=== PATIENT | female | born 1995 | race Caucasian/White ===

== ENCOUNTER 2017-03-26 11:41 | Emergency (ER) | payer OTHER ==
[~2017-03-26] VITALS: Wt 47.5 kg
[~2017-03-26 11:41] MED LIST: ALBU8.5H5 INH; PRED20TA PO; RTPRO5
[2017-03-26] MEDS ORDERED: POLY10DR19 BOTH EYES (11:57)
--- NOTE | 2017-03-26 12:58 | ERD ---
ER Documentation Chief Complaint Date/Time DATE: 03/26/17 TIME: 12:54 Chief Complaint R EYE LID PAIN X 6 MONTHS HPI 21-year-old female patient with no significant past medical history presents to the ED complaining of a painful stye that has been on her right eyelid since September 2016. States that she has been applying hot compresses and applying a stye ointment that she bought [id number]. Denies any symptomatic relief. Denies any vision changes, blurred vision, diplopia, photophobia, phonophobia , eye trauma, headache, weakness, numbness or tingling. Denies wearing glasses or contacts. ROS All systems reviewed and are negative except as per history of present illness. Medications Home Meds Active Scripts Polymyxin B Sulfate-TMP* (Polymyxin B-TMP Eye Drops*) 10 Ml Drops, 1 DROP BOTH EYES QID for 7 Days, EA Prov:LUPE KRISHNA PA-C 03/26/17 Albuterol Sulfate* (Albuterol Sulfate* HFA) 8.5 Gm Hfa.aer.ad, 1-2 PUFF INH Q4 Y for SHORTNESS OF BREATH, #1 EA Prov:BAO WATERMAN PA-C 09/26/15 Prednisone* (Prednisone*) 20 Mg Tab, 40 MG PO DAILY for 4 Days, TAB Prov:BAO WATERMAN PA-C 09/26/15 Reported Medications Albuterol Sulfate* (Proventil* Neb) 0.5% Nebu 09/26/15 Allergies Allergies: Coded Allergies: No Known Allergy (Verified , 12/29/08) PMhx/Soc Medical and Surgical Hx: pt denies Medical Hx, pt denies Surgical Hx Hx Alcohol Use: No Hx Substance Use: No Hx Tobacco Use: No Smoking Status: Never smoker Physical Exam Vitals Vital Signs Date Time Temp Pulse Resp B/P Pulse Ox O2 Delivery O2 Flow Rate FiO2 03/26/17 11:43 98.0 83 18 115/74 99 Physical Exam Const: Njo-mqo-zxkecxezh, well-nourished. In no acute distress. Head: Atraumatic, normocephalic Eyes: Normal Conjunctiva without injection. 1 cm No purulent discharge. PERRLA. EOMI ENT: Normal external ear. Ear canal without erythema. Tympanic membrane pearly alonso without effusion or bulging. Nasal canal clear with normal turbinates. Moist oropharynx without tonsillar exudates. Non-erythematous pharynx. Uvula midline. No drooling. No trismus. Neck: No cervical midline tenderness. Full range of motion. No meningismus. No cervical lymphadenopathy. No JVD. Resp: Clear to auscultation bilaterally. No wheezing, rhonchi, rales, or crackles. No accessory muscle use. No retractions. Cardio: Regular rate and rhythm. No murmurs, rubs or gallops. Skin: Normal skin turgor. No petechiae or rashes Neur: Awake and alert. Normal gait. Normal coordination. Cranial Nerves II- VII intact. Normal finger to nose. Muscle strength 5/5. Sensation intact. Psych: Normal Mood and Affect Procedures/MDM This is a 21-year-old female patient with no significant past medical history presents to the ED complaining of right eyelid pain that started 6 months. Patient is afebrile and nontoxic-appearing. Patient has normal vital signs. Patient likely has a chronic stye since it is painful. Other differentials are to chalazion however these are usually painless. Patient's ocular symptoms have stabilized while they have been evaluated in the department and are appropriate for outpatient work up. Low suspicion for ruptured globe, retinal detachment, periorbital cellulitis, acute angle closure glaucoma, deep space infection, iritis, traumatic hyphema, conjunctivitis, subconjunctival hemorrhage , corneal abrasion, corneal ulcer, pterygium, hypopyon, blepharitis, or other emergent conditions. This case was discussed with my supervising physician Dr. Gomez who agreed with the management and discharge plan. Discharge medications: Polymyxin B TMP eyedrops Strictly instructed patient to follow up with an picker / packer within 2-3 days for further evaluation and treatment. Instructed patient to return to the ED for any worsening symptoms. Patient is hemodynamically stable. Patient's questions were answered. Patient understood and agreed with discharge plan. Departure Diagnosis: Primary Impression: Eyelid pain Laterality: right Qualified Code: H57.11 - Eyelid pain, right Condition: Stable Patient Instructions: Candace Garcia Referrals: COMM[facility]ITY [facility] YOU HAVE RECEIVED A MEDICAL SCREENING EXAM AND THE RESULTS INDICATE THAT YOU DO NOT HAVE A CONDITION THAT REQUIRES URGENT TREATMENT IN THE EMERGENCY DEPARTMENT. FURTHER EVALUATION AND TREATMENT OF YOUR CONDITION CAN WAIT UNTIL YOU ARE SEEN IN YOUR DOCTORS OFFICE WITHIN THE NEXT 1-2 DAYS. IT IS YOUR RESPONSIBILITY TO MAKE AN APPOINTMENT FOR FOLOW-UP CARE. IF YOU HAVE A PRIMARY DOCTOR --you should call your primary doctor and schedule an appointment IF YOU DO NOT HAVE A PRIMARY DOCTOR YOU CAN CALL OUR PHYSICIAN REFERRAL HOTLINE AT IF YOU CAN NOT AFFORD TO SEE A PHYSICIAN YOU CAN CHOSE FROM THE FOLLOWING [facility] [address] [facility] [address] [facility] [address] [facility] [address] [facility] [address] [facility]. [facility] [address] [facility]. [facility] YOU HAVE RECEIVED A MEDICAL SCREENING EXAM AND THE RESULTS INDICATE THAT YOU DO NOT HAVE A CONDITION THAT REQUIRES URGENT TREATMENT IN THE EMERGENCY DEPARTMENT. FURTHER EVALUATION AND TREATMENT OF YOUR CONDITION CAN WAIT UNTIL YOU ARE SEEN IN YOUR DOCTORS OFFICE WITHIN THE NEXT 1-2 DAYS. IT IS YOUR RESPONSIBILITY TO MAKE AN APPOINTMENT FOR FOLOW-UP CARE. IF YOU HAVE A PRIMARY DOCTOR --you should call your primary doctor and schedule and appointment IF YOU DO NOT HAVE A PRIMARY DOCTOR YOU CAN CALL OUR PHYSICIAN REFERRAL HOTLINE AT . IF YOU CAN NOT AFFORD TO SEE A PHYSICIAN YOU CAN CHOSE FROM THE FOLLOWING [facility] INSTITUTIONS: [facility] [address] [place] [address] [facility] [address] [place] [address] [facility] [address] [place] [address] [facility] Hours: Mon - Fri 9:00 AM - 5:00 PM Additional Instructions: Call your primary care doctor TOMORROW for an appointment during the next 1-2 days for a referral to opthalomologist. See the doctor sooner or return here if your condition worsens before your appointment time. LUPE KRISHNA PA-C Mar 26, 2017 12:58
== END 2017-03-26 12:17 | disposition home or self-care (01) ==
LOC: FTE 11:41
DX: H57.11 Ocular pain, right eye (principal)
CPT/HCPCS: 99283

== ENCOUNTER 2017-08-11 21:15 | Emergency (ER) | payer SELFPAY ==
[~2017-08-11] VITALS: Ht 152.4 cm; Wt 48.0 kg
[~2017-08-11 21:15] MED LIST changes: +POLY10DR19 BOTH EYES
[2017-08-11 21:40] VITALS: Ht 152.4 cm; Wt 48.0 kg
[2017-08-11] MEDS ORDERED: ALBUTEROL 0.083% (NEB) 2.5 MG/3 ML AMP NEB STA (23:29)
[2017-08-11] MEDS ORDERED: IPRATROPIUM (NEB) 0.5 MG/2.5 ML AMP NEB STA (23:29)
--- NOTE | 2017-08-11 23:50 | ERD ---
ER Documentation Chief Complaint Date/Time DATE: 08/11/17 TIME: 23:47 Chief Complaint c/o SB since a.m. No relief with inhaler. (+) wheeze. HPI 22-year-old female presents here in emergency department for complaints of shortness of breath wheezing that started this morning. Patient has been having dry cough, does not cough up any phlegm or blood. Patient does not have any fever or chills. Patient does not have any sick contacts. patient used albuterol at home with mild relief. ROS All systems reviewed and are negative except as per history of present illness. Medications Home Meds Active Scripts Prednisone* (Prednisone*) 50 Mg Tablet, 50 MG PO DAILY, #5 TAB Prov:JUAN العلي NP 08/12/17 Albuterol Sulfate* (Proair HFA*) 8.5 Gm Hfa.aer.ad, 2 PUFF INH Q4H Y for WHEEZING AND SOB, #1 INHALER Prov:JUAN العلي NP 08/12/17 Ipratropium-Albuterol (Ipratropium-Albuterol) 0.5-3 Mg/3 Ml Ampul.neb, 3 ML INH Q4H Y for SHORTNESS OF BREATH, #30 AMP Prov:JUAN العلي NP 08/12/17 Ibuprofen* (Motrin*) 600 Mg Tab, 600 MG PO Q6H Y for PAIN AND OR ELEVATED TEMP, #30 TAB Prov:JUAN العلي NP 08/12/17 Cetirizine Hcl* (Zyrtec*) 10 Mg Capsule, 10 MG PO DAILY, #40 TAB.CHEW Prov:JUAN العلي NP 08/12/17 Guaifenesin-Codeine Phosphate* (Guaifenesin* AC Cough Syrup) 473 Ml Liquid, 10 ML PO Q4H Y for COUGH, #60 ML Prov:JUAN العلي NP 08/12/17 Polymyxin B Sulfate-TMP* (Polymyxin B-TMP Eye Drops*) 10 Ml Drops, 1 DROP BOTH EYES QID for 7 Days, EA Prov:LUPE KRISHNA PA-C 03/26/17 Albuterol Sulfate* (Albuterol Sulfate* HFA) 8.5 Gm Hfa.aer.ad, 1-2 PUFF INH Q4 Y for SHORTNESS OF BREATH, #1 EA Prov:BAO WATERMAN PA-C 09/26/15 Prednisone* (Prednisone*) 20 Mg Tab, 40 MG PO DAILY for 4 Days, TAB Prov:BAO WATERMAN PA-C 09/26/15 Reported Medications Albuterol Sulfate* (Proventil* Neb) 0.5% Nebu 09/26/15 Allergies Allergies: Coded Allergies: No Known Allergy (Verified , 12/29/08) PMhx/Soc Medical and Surgical Hx: pt denies Medical Hx, pt denies Surgical Hx Hx Alcohol Use: No Hx Substance Use: No Hx Tobacco Use: No FmHx Family History: No coronary disease, No diabetes, No other Physical Exam Vitals Vital Signs Date Time Temp Pulse Resp B/P Pulse Ox O2 Delivery O2 Flow Rate FiO2 08/12/17 00:18 87 18 97 08/11/17 21:40 98.3 88 20 112/55 97 Physical Exam GENERAL: The patient is well developed and appropriate for usual state of health, in no apparent distress. CHEST: Diffuse wheezing noted bilaterally. There are no rales, crackles or rhonchi. HEART: Regular rate and rhythm. No murmurs, clicks, rubs or gallops. No S3 or S4. ABDOMEN: Soft, nontender and nondistended. Good bowel sounds. No rebound or guarding. No gross peritonitis. No gross organomegaly or masses. No Jauregui sign or McBurney point tenderness. BACK: No midline or flank tenderness. EXTREMITIES: Equal pulses bilaterally. There is no peripheral clubbing, cyanosis or edema. No focal swelling or erythema. Full range of motion. Grossly neurovascularly intact. NEURO: Alert and oriented. Cranial nerves 2-12 intact. Motor strength in all 4 extremities with 5/5 strength. Sensation grossly intact. Normal speech and gait. SKIN: There is no apparent rash or petechia. The skin is warm and dry. HEMATOLOGIC AND LYMPHATIC: There is no evidence of excessive bruising or lymphedema. No gross cervical, axillary, or inguinal lymphadenopathy. Results 24 hrs Current Medications Medications (Trade) Dose Ordered Sig/Kieran Route PRN Reason Start Time Stop Time Status Last Admin Dose Admin Albuterol (Proventil 0.083% (Neb)) 5 mg ONCE STAT NEB 08/11/17 23:29 08/11/17 23:31 DC 08/12/17 00:18 Ipratropium [place] (Atrovent 0.02% (Neb)) 0.5 mg ONCE STAT NEB 08/11/17 23:29 08/11/17 23:31 DC 08/12/17 00:18 Breathing treatment of albuterol and Atrovent was given here in emergency department, after treatment, patient's lungs sounds are clear and patient's oxygenation is better. Patient verbalized feeling much better. PROCEDURE: XR Chest. CLINICAL INDICATION: Asthma exacerbation TECHNIQUE: Single AP portable chest. COMPARISON: 09/26/2050 Chest x-ray FINDINGS: The cardiomediastinal silhouette is within normal limits of size. The lungs are clear without pleural effusion or focal consolidation. No pneumothorax. The osseous structures and soft tissues are unremarkable. IMPRESSION: 1. No evidence for active cardiopulmonary disease. 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 There is low suspicion for Pneumonia at this time since patients lungs sounds are clear, patient O2 saturation is normal and patient doesnt show any respiratory distress. Patients chest xray doesnt show infiltrates or any other cardiopulmonary emergencies at this time. There is low suspicion for other cardiopulmonary emergencies at this time such as CHF, Pulmonary Embolism, Pneumothorax, Aortic Aneurysm or any other cardiopulmonary emergencies at this time. There is low suspicion for sepsis. Patient appear well and is hemodynamically stable. Disposition: Home. Condition: Stable Prescriptions: Guaifenasin w/ codeine, albuterol, prednisone, zyrtec, ibuprofen Instructions: Patient is advised to take medications as prescribed. Patient is advised to rest. Patient advised to increase fluid intake, do humidifier at home and if possible, do salt water gargles. Patient is advised that if symptoms are worse, shortness of breath, uncontrolled fever, stridor, vomiting, worst signs and symptoms to return to emergency department immediately. Otherwise, patient is advised to follow up with primary doctor in 5-7 days. Disclaimer: Inadvertent spelling and grammatical errors are likely due to EHR/ dictation software use and do not reflect on the overall quality of patient care. Also, please note that the electronic time recorded on this note does not necessarily reflect the actual time of the patient encounter. Departure Diagnosis: Primary Impression: Asthma with acute exacerbation Asthma severity: unspecified severity Qualified Code: J45.901 - Asthma with acute exacerbation, unspecified asthma severity Additional Impression: Acute bronchitis Bronchitis organism: unspecified organism Qualified Code: J20.9 - Acute bronchitis, unspecified organism Condition: Stable Patient Instructions: Bronchitis With Wheezing (Child) Additional Instructions: Patient is advised to take medications as prescribed. Patient is advised to rest. Patient advised to increase fluid intake, do humidifier at home and if possible, do salt water gargles. Patient is advised that if symptoms are worse, shortness of breath, uncontrolled fever, stridor, vomiting, worst signs and symptoms to return to emergency department immediately. Otherwise, patient is advised to follow up with primary doctor in 5-7 days. JUAN العلي NP Aug 11, 2017 23:50
--- NOTE | 2017-08-12 00:17 | RADRPT ---
PROCEDURE: XR Chest. CLINICAL INDICATION: Asthma exacerbation TECHNIQUE: Single AP portable chest. COMPARISON: 09/26/2050 Chest x-ray FINDINGS: The cardiomediastinal silhouette is within normal limits of size. The lungs are clear without pleur al effusion or focal consolidation. No pneumothorax. The osseous structures and soft tissues are unr emarkable. IMPRESSION: 1. No evidence for active cardiopulmonary disease. RPTAT:AAJJ Katarina Myles Physician Date Time Electronically viewed and signed by Katarina Myles Physician on 08/12/2017 00:17 ADOR/
[2017-08-12] MEDS ORDERED: CETI10CA PO (00:57)
[2017-08-12] MEDS ORDERED: PRED50TA PO (00:57)
[2017-08-12] MEDS ORDERED: GUAI473L22 PO (00:57)
[2017-08-12] MEDS ORDERED: IBUP-1542 PO (00:57)
[2017-08-12] MEDS ORDERED: IPRA3AMP INH (00:57)
[2017-08-12] MEDS ORDERED: ALBU8.5H3 INH (00:57)
[2017-08-12 01:34] VITALS: BP 109/66; PULSE 75; RESP 18; TEMP 98.6
== END 2017-08-12 01:36 | disposition home or self-care (01) ==
LOC: FTE 21:15
DX: J45.901 Unspecified asthma with (acute) exacerbation (principal); J20.9 Acute bronchitis, unspecified
CPT/HCPCS: 71010; 94664

== ENCOUNTER 2018-03-06 16:35 | Emergency (ER) | END 2018-03-06 17:38 | disposition home or self-care (01) ==

== ENCOUNTER 2019-04-07 12:03 | Emergency (ER) | payer BC ==
[~2019-04-07] VITALS: Ht 152.4 cm; Wt 62.0 kg
[~2019-04-07 12:03] MED LIST changes: +ALBU8.5H8 INH; +CETI10CA PO; +GUAI473L22 PO; +IBUP-1542 PO; +IBUP-1561 PO; +IPRA3AMP29 INH; +PRED50TA PO
[2019-04-07 12:05] VITALS: Ht 152.4 cm; Wt 62.0 kg
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
[2019-04-07] MEDS ORDERED: CYCLOBENZAPRINE 10 MG TAB PO ONE (14:00)
[2019-04-07] MEDS ORDERED: IBUPROFEN 600 MG TAB PO ONE (14:00)
[2019-04-07] MEDS ORDERED: CYCL10TA7 PO (14:58)
[2019-04-07] MEDS ORDERED: IBUP-1542 PO (14:59)
[2019-04-07 15:09] VITALS: BP 114/68; PULSE 74; RESP 18
== END 2019-04-07 15:10 | disposition home or self-care (01) ==
LOC: FTE 12:03
DX: M62.838 Other muscle spasm (principal); J45.909 Unspecified asthma, uncomplicated
CPT/HCPCS: 81025; 99283